=== PATIENT | male | born 1950 | race Caucasian/White ===

== ENCOUNTER → 2016-08-12 | Outpatient (CLI) | payer OTHER, MEDICARE ==
[~2016-08-12] MED LIST: OXYC-57 PO; SIMV20TA2 PO
--- NOTE | 2016-08-12 15:01 | DIAGNOSTIC IMAGING REPORT ---
TESTICULAR ULTRASOUND HISTORY: Scrotal swelling. COMPARISON: None. FINDINGS: Right testis: 5.6 x 2.9 x 3.6 cm. There are no intratesticular masses. Normal color flow. No hydrocele. Multiple large epididymal head cyst/spermatoceles. Dominant lesion measures 7.7 x 4.2 x 4.7 cm. This contains internal echoes.. Left testis: 5.1 x 2.7 x 3.8 cm. There are no intratesticular masses. Normal color flow. No hydrocele. Multiple large epididymal head cyst/spermatoceles. Dominant lesion measures 2.3 x 2.2 x 2.0 cm. IMPRESSION: 1. Normal bilateral testes. 2. Multiple large bilateral epididymal head cysts/spermatoceles. 3. No hydroceles. Electronically signed by: Henok Sharpe M.D. 08/12/2016 3:00 PM Dictated Date/Time: 08/12/2016 2:55 PM
== END | disposition home or self-care (01) ==
LOC: C.ULTR 14:06
PROVIDERS: ATTEND Nurse Practitioner Family
DX: N50.89 Other specified disorders of the male genital organs (principal)

== ENCOUNTER 2016-09-27 06:16 | Day surgery (SDC) | payer OTHER, MEDICARE ==
[2016-09-15 09:29] VITALS: BMI 31.0
--- NOTE | 2016-09-15 09:45 | PAT Medication Instructions ---
Service Date Sep 15, 2016. Current Home Medication List Simvastatin (Zocor), 20 MG PO QPM Medication Instructions For Your Scheduled Surgery - Take the following medications as scheduled the night before surgery: Simvastatin (Zocor), 20 MG PO QPM If you have any questions please call us at [phone] or [phone] ( [place]) or [phone]
--- NOTE | 2016-09-15 10:14 | DIAGNOSTIC IMAGING REPORT ---
TWO VIEW CHEST CLINICAL HISTORY: Preoperative examination. FINDINGS: PA and lateral chest radiographs are obtained. No prior studies are available for comparison at the time of dictation. The cardiomediastinal silhouette is unremarkable. There is mild atherosclerotic calcification of the thoracic aorta. The lungs and pleural spaces are clear. Biapical scarring is observed. There is no pneumothorax. The bony thorax appears intact. Degenerative change is noted in the thoracic spine. IMPRESSION: No active disease in the chest. Electronically signed by: Chinedu Osuna M.D. 09/15/2016 10:11 AM Dictated Date/Time: 09/15/2016 10:11 AM
[2016-09-15 10:17] LABS: BASO % 0.7 %; BASO ABS # 0.05 K/uL (0-0.2); COMPLETE YES; EOS % 5.9 %; HEMATOCRIT 43.3 % (42-52); LYMPH ABS # 2.16 K/uL (1.2-3.4); MEAN CELL VOLUME 86.6 fL (80-100); MEAN CORPUSCULAR HEMOGLOBIN 29.6 pg (25-34); MEAN CORPUSCULAR HGB CONC 34.2 g/dl (32-36); MEAN PLATELET VOLUME 11.8 fL (7.4-10.4); MONO % 8.1 %; NEUT % 53.3 %; PLATELET COUNT 182 K/uL (130-400); WHITE BLOOD COUNT 6.75 K/uL (4.8-10.8)
[2016-09-15 10:22] LABS: CALCIUM 8.7 mg/dl (8.5-10.1); CREATININE 0.97 mg/dl (0.60-1.40); POTASSIUM 4.4 mmol/L (3.5-5.1)
[2016-09-15 10:46] LABS: URINE APPEARANCE CLEAR (CLEAR); URINE BILIRUBIN NEG (NEG); URINE COLOR YELLOW; URINE NITRITE NEG (NEG); URINE PH 5.5 (4.5-7.5); URINE SPECIFIC GRAVITY 1.021 (1.000-1.030); UROBILINOGEN NEG (NEG)
[2016-09-15 10:52] LABS: MANUAL MICROSCOPIC REQUIRED? NO; REVIEW REQ? NO
[~2016-09-27] VITALS: Ht 177.8 cm; Wt 100.2 kg
[~2016-09-27 06:16] MED LIST changes: +LACTATED RINGER'S 1000ML 1,000 ML IV SCH; -OXYC-57 PO
[2016-09-27 06:55] VITALS: BP 156/98; PULSE 73; TEMP 36.5; O2SAT 96; Ht 177.8 cm; Wt 100.2 kg
[2016-09-27] MEDS ORDERED: DEXAMETHASONE SOD INJ 4 MG/ML VIAL ONE (07:51)
[2016-09-27] MEDS ORDERED: ONDANSETRON INJ 2 MG/ML 2 ML VIAL ONE (07:51)
[2016-09-27] MEDS ORDERED: PROPOFOL IV EMULSION 10 MG/ML 20 ML VIAL IV ONE (07:51)
[2016-09-27] MEDS ORDERED: FENTANYL CITRATE INJ 50 MCG/1 ML 2 ML VIAL ONE ×2 (07:51→08:53)
[2016-09-27] MEDS ORDERED: LIDOCAINE HCL 2% 2 ML VIAL (20MG/ML) ONE (07:51)
[2016-09-27] MEDS ORDERED: MIDAZOLAM HCL 1 MG/ML 2ML VIAL ONE (07:51)
--- NOTE | 2016-09-27 08:06 | History & Physical Bridge Note ---
H&P Re-Evaluation Bridge Note: I have examined the patient, reviewed the History & Physical and in the interval since the performance of the History & Physical I have noted the following changes of clinical significance: No changes noted
[2016-09-27] MEDS: CEFAZOLIN 2000 MG/60 ML D5W IV SCH ×2 (08:07→08:23)
[2016-09-27] MEDS ORDERED: BUPIVACAINE 0.5 % 5 MG/1 ML MPF 30ML VIAL ONE (08:27)
[2016-09-27] MEDS ORDERED: EpHEDrine SULFATE 50MG/5ML SYR ONE (09:27)
--- NOTE | 2016-09-27 09:44 | [facility] Post Operative Brief Note ---
Immediate Operative Summary Operative Date Sep 27, 2016. Pre-Operative Diagnosis Right Spermatocele Post-Operative Diagnosis Right Spermatocele Procedure(s) Performed Right Scrotal Spermatocelectomy Surgeon Dr. Blue Lab Courier Surgeon(s) none Estimated Blood Loss 5 cc Findings right spermatocele Specimens A: right scrotal spermatocelectomy Drains none Anesthesia general Complication(s) None Disposition Recovery Room / PACU
[2016-09-27] MEDS ORDERED: OXYC-57 PO (09:45)
--- NOTE | 2016-09-27 09:46 | Discharge Instructions ---
Discharge Instructions Date of Service Sep 27, 2016. Visit Reason for Visit: Spermatocele Discharge Discharge Diagnosis / Problem: right spermatocele Discharge Goals Goal(s): Therapeutic intervention Activity Recommendations Activity Limitations: resume your previous activity (take it easy today) Anesthesia . Post Anesthesia Instructions: If you have had General Anesthesia or IV Sedation: * Do not drive today. * Resume driving when surgeon permits. * Do not make important decisions or sign legal documents today. * Call surgeon for: 1. Temperature elevations greater than 101 degrees F. 2. Uncontrollable pain. 3. Excessive bleeding. 4. Persistent nausea and vomiting. 5. Medication intolerance (nausea, vomiting or rash). * For nausea and vomiting use only clear liquids such as: tea, soda, bouillon until nausea subsides, then gradually increase diet as tolerated. * If you have any concerns or questions, call your surgeon's office. If physician is unavailable and it is an emergency, call 911 or go to the nearest emergency room. . Diet Recommendations Recommended Home Diet: resume previous diet Procedures Procedures Performed: Right Scrotal Spermatocelectomy Pending Studies Studies pending at discharge: no Medical Emergencies . Who to Call and When: Medical Emergencies: If at any time you feel your situation is an emergency, please call 911 immediately. . Non-Emergent Contact Non-Emergency issues call your: Urologist . . "Provider Documentation" section prepared by Austin Blue. . [place] Drug Monitoring Program Search Results: patient reviewed within database
[2016-09-27] MEDS ORDERED: HYDROmorphone INJ 0.5 MG/0.5 ML SYR ONE (09:59)
[2016-09-27] MEDS ORDERED: LABETALOL HCL IV 5 MG/ML 20ML IV PRN (10:00)
[2016-09-27] MEDS ORDERED: HYDROmorphone INJ 0.5 MG/0.5 ML SYR IV PRN (10:00)
[2016-09-27] MEDS ORDERED: ONDANSETRON INJ 2 MG/ML 2 ML VIAL IV PRN (10:00)
[2016-09-27] MEDS ORDERED: PROMETHAZINE HCL INJ 12.5 MG in SODIUM CHLORIDE 0.9% 50ML 50 ML IV PRN (10:00)
[2016-09-27] MEDS ORDERED: OXYCODONE/ACETAMINOPHEN 5-325 TAB PO PRN (10:00)
[2016-09-27] MEDS ORDERED: ATROPINE SULFATE 0.1 MG/ML 5ML SYR IV PRN (10:00)
[2016-09-27] MEDS ORDERED: EpHEDrine SULFATE INJ 50 MG/ML AMP IV PRN (10:00)
[2016-09-27] MEDS ORDERED: NALOXONE HCL 0.4 MG/1 ML VIAL/CARP IV PRN (10:00)
--- NOTE | 2016-09-27 10:18 | Anesthesiology Progress Note ---
Anesthesia Post Op Note Date & Time Sep 27, 2016 at 10:17 Vital Signs Pain Intensity: 1 Vital Signs Past 12 Hours Date Time Temp Pulse Resp B/P Pulse Ox O2 Delivery O2 Flow Rate FiO2 09/27/16 10:14 36.5 09/27/16 10:11 83 16 09/27/16 10:11 83 16 92 09/27/16 10:10 148/91 09/27/16 10:06 83 16 95 09/27/16 10:06 83 16 09/27/16 10:05 152/94 09/27/16 10:01 84 16 92 09/27/16 10:01 84 16 09/27/16 10:00 152/81 09/27/16 09:56 84 14 151/88 99 09/27/16 09:56 84 14 09/27/16 09:55 Room Air 09/27/16 09:51 83 16 09/27/16 09:51 82 16 100 09/27/16 09:50 149/87 09/27/16 09:46 85 17 09/27/16 09:46 85 17 99 09/27/16 09:45 88 16 09/27/16 09:45 86 16 149/86 99 09/27/16 09:40 37 90 16 147/82 100 Mask 10 09/27/16 06:55 36.5 73 18 156/98 96 Room Air Notes Mental Status: alert / awake / arousable, participated in evaluation Pt Amnestic to Procedure: Yes Nausea / Vomiting: adequately controlled Pain: adequately controlled Airway Patency, RR, SpO2: stable & adequate BP & HR: stable & adequate Hydration State: stable & adequate Anesthetic Complications: no major complications apparent
[2016-09-27 10:23] VITALS: BP 152/86; PULSE 88; TEMP 36.6; O2SAT 93
[2016-09-27 10:55] VITALS: BP 151/83; PULSE 77; O2SAT 92
[2016-09-27 11:25] VITALS: BP 161/90; PULSE 83; TEMP 36.4; O2SAT 95
[2016-09-27 11:50] VITALS: BP 138/88; PULSE 70; TEMP 36.4; O2SAT 94
--- NOTE | 2016-09-29 12:43 | OPERATIVE REPORT ---
DATE OF OPERATION: 09/27/2016 PREOPERATIVE DIAGNOSIS: Right spermatocele. POSTOPERATIVE DIAGNOSIS: Same. PROCEDURE: Right spermatocelectomy. FINDINGS: The patient had a large loculated right spermatocele. SURGEON: Dr. Blue. ANESTHESIA: General. DRAINS: None. COMPLICATIONS: None. SPECIMEN: Spermatocele. INDICATIONS: The patient is a 66-year-old white male with a large right scrotal swelling which was found to be a spermatocele on ultrasound. It was bothersome to the patient and he wanted to have it removed. PROCEDURE IN DETAIL: After the induction of an adequate general anesthetic and appropriate timeout, the patient's lower abdomen, genitalia and scrotum were scrubbed with Betadine scrub, painted with Betadine paint, draped in a sterile fashion. Transverse incision was made in the right hemiscrotum, being carried down through skin and subcutaneous tissues through the dartos, down to the tunica vaginalis which was opened. The testicle was then extruded along with the large hydrocele. The hydrocele was then dissected down to its neck which was identified, clamped, and the hydrocele was then transected and handed off the table. The neck was then ligated with 2-0 Vicryl. The testicle and cord were then irrigated with sterile saline. Any bleeding points were elevated well off the cord and electrocautery was used for hemostasis. The tunica vaginalis was then inverted posterior to the testicle and lightly sutured in place with 3-0 chromic to prevent hydrocele formation. The scrotum was likewise irrigated with sterile saline. The testicle was then placed back in the right hemiscrotum in its correct anatomic position and the wound was closed in the following fashion. The dartos layers were closed with a running locked 0 chromic. Skin was closed with 3-0 chromic interrupted suture. The wound was then washed and dried. Xeroform gauze, fluff gauze and a scrotal support were applied. All needle, sponge and instrument counts were correct at the end of the case. The patient tolerated the procedure well and went to the recovery room in stable condition. I attest to the content of the Intraoperative Record and any orders documented therein. Any exceptio ns are noted below.
== END 2016-09-27 12:14 | disposition home or self-care (01) ==
LOC: C.ACU 06:16
PROVIDERS: ATTEND Urology
DX: N43.40 Spermatocele of epididymis, unspecified (principal); E78.5 Hyperlipidemia, unspecified; Z83.3 Family history of diabetes mellitus